=== PATIENT | female | born 1980 | race American Indian/Alaskan Native ===

== ENCOUNTER 2017-05-20 21:18 | Emergency (ER) | payer BC ==
[2017-05-20 21:27] VITALS: BP 159/96
== END 2017-05-20 21:40 | disposition left against medical advice (07) ==
LOC: ED 21:18 → EDBD 21:18 → ED 21:40
DX: R07.9 Chest pain, unspecified (principal); Z53.21 Procedure and treatment not carried out due to patient leaving prior to being seen by health care provider
CPT/HCPCS: 93005; 93010